=== PATIENT | female | born 1955 | race Hispanic/Latino ===

== ENCOUNTER → 2021-10-07 | Outpatient (CLI) | payer MEDICARE | LOC: MAMMO 13:03 | PROVIDERS: ATTEND Family Medicine | DX: Z12.31 Encounter for screening mammogram for malignant neoplasm of breast (principal); M81.8 Other osteoporosis without current pathological fracture | CPT/HCPCS: 77067; 77080 ==

== ENCOUNTER → 2022-03-25 | Outpatient (RCR) | payer MEDICARE | LOC: PT 02-28 10:55 | PROVIDERS: ATTEND Specialist | DX: M47.812 Spondylosis without myelopathy or radiculopathy, cervical region (principal); M25.512 Pain in left shoulder; M25.612 Stiffness of left shoulder, not elsewhere classified; M62.81 Muscle weakness (generalized) | CPT/HCPCS: 97139 ==

== ENCOUNTER 2022-04-11 10:59 | Outpatient (RCR) | payer MEDICARE | END 2022-04-24 | LOC: PT 10:59 | PROVIDERS: ATTEND Specialist | DX: M47.812 Spondylosis without myelopathy or radiculopathy, cervical region (principal) | CPT/HCPCS: 97139 ==